=== PATIENT | female | born 1970 | race African-American/Black ===

== ENCOUNTER 2017-08-21 10:57 | Emergency (ER) | payer BC, OTHER ==
[~2017-08-21] VITALS: Ht 177.8 cm; Wt 99.0 kg
[2017-08-21 12:23] LABS: BASOPHILS % 0.9 % (0.0-2.0); HEMATOCRIT. 35.6 % (36.0-48.0); HEMOGLOBIN. 11.6 g/dL (12.0-16.0); LYMPHOCYTES % 31.3 % (20.0-50.0); MEAN CORPUSCULAR HEMOGLOBIN 29.8 pg (28.0-32.0); MEAN CORPUSCULAR VOLUME 91.5 fL (81.0-99.0); MEAN PLATELET VOLUME 8.4 fl (7.4-10.4); MONOCYTES % 9.1 % (2.0-8.0); NEUTROPHILS % 56.7 % (40.0-76.0); PLATELET 325 x1000/uL (130-400); RED BLOOD CELL COUNT 3.89 mill/uL (4.2-5.4)
[2017-08-21 12:31] LABS: CHLORIDE 105 mEq/L (98-107); ETHANOL BLOOD < 10 mg/dL
[2017-08-21 12:36] LABS: TROPONIN I < 0.02 ng/mL (0.00-0.04)
[2017-08-21 12:45] LABS: CLARITY URINE CLOUDY (CLEAR); COLOR URINE YELLOW (YELLOW); KETONES URINE NEGATIVE (NEGATIVE); LEUKOCYTE ESTERASE URINE NEGATIVE (NEGATIVE); NITRITE URINE NEGATIVE (NEGATIVE); OCCULT BLOOD URINE 1+ (NEGATIVE); PROTEIN URINE NEGATIVE (NEGATIVE); UROBILINOGEN URINE 0.2 E.U./dL (0.2-1.0)
[2017-08-21 13:03] LABS: *AMPHETAMINES SCREEN URINE NEGATIVE (NEGATIVE); *BARBITURATES SCREEN URINE NEGATIVE (NEGATIVE); *BENZODIAZEPINES SCREEN URINE NEGATIVE (NEGATIVE); *COCAINE SCREEN URINE NEGATIVE (NEGATIVE); CANNABINOID URINE SCREEN NEGATIVE (NEGATIVE); METHADONE URINE SCREEN NEGATIVE (NEGATIVE); OPIATES URINE SCREEN NEGATIVE (NEGATIVE); PHENCYCLIDINE URINE SCREEN NEGATIVE (NEGATIVE)
[2017-08-21] MEDS ORDERED: METOCLOPRAMIDE HCL 10MG/2ML VIAL IV STA (13:42)
[2017-08-21] MEDS ORDERED: SODIUM CHLORIDE 0.9% 1,000 ML IV ONE (13:42)
[2017-08-21] MEDS ORDERED: KETOROLAC 30MG/ML VIAL IV STA (13:42)
[2017-08-21] MEDS ORDERED: MECLIZINE 25MG TABLET PO ONE (14:00)
[2017-08-21 14:51] VITALS: BP 116/80
== END 2017-08-21 14:56 | disposition home or self-care (01) ==
LOC: ER 10:57
DX: H81.10 Benign paroxysmal vertigo, unspecified ear (principal); N39.0 Urinary tract infection, site not specified; D64.9 Anemia, unspecified; Z98.890 Other specified postprocedural states; Z91.09 Other allergy status, other than to drugs and biological substances
CPT/HCPCS: 36415; 71045; 80053; 80305; 81003; 81025; 82962; 84484; 85025; 93005; 99285; G0482; J7030; J8597